=== PATIENT | male | born 1985 | race Caucasian/White ===

== ENCOUNTER 2019-11-28 08:16 | Emergency (ER) | payer SELFPAY ==
[2019-11-28 08:30] VITALS: BP 155/78
== END 2019-11-28 10:49 | disposition left against medical advice (07) ==
LOC: ED 08:16
DX: L50.8 Other urticaria (principal); Z53.21 Procedure and treatment not carried out due to patient leaving prior to being seen by health care provider

== ENCOUNTER 2021-03-31 06:52 | Emergency (ER) | payer SELFPAY ==
[2021-03-31 07:20] VITALS: BP 113/51
--- NOTE | 2021-03-31 07:29 | Emergency Department Report ---
ED ENT HPI - General Chief complaint: Dental/Oral Stated complaint: TOOTHACHE Time Seen by Provider: 03/31/21 07:22 Source: patient Mode of arrival: Ambulatory Limitations: No Limitations - History of Present Illness Initial comments: 36-year-old -[place] male presents to the ER today with complaints of dental pain. Onset 2 days ago. Location right upper jaw. Patient admits that he has had a bad tooth in that area for a while, but started to hurt 2 days ago and felt like it started to swell and so came to the ER to get checked. He does not currently have a dentist. He reports no trismus, drooling, facial redness, fever, chills or any additional symptoms at this time. MD complaint: tooth pain -: days(s) (2) - Related Data Previous Rx's Medication Instructions Recorded Last Taken Type Ketorolac [Toradol] 10 mg PO Q6H PRN #20 03/31/21 Unknown Rx Penicillin V Potassium 500 mg PO Q6HR #40 tab 03/31/21 Unknown Rx Allergies Allergy/AdvReac Type Severity Reaction Status Date / Time No Known Allergies Allergy Verified 03/31/21 07:16 ED Dental HPI - General Chief complaint: Dental/Oral Stated complaint: TOOTHACHE Time Seen by Provider: 03/31/21 07:22 Source: patient Mode of arrival: Ambulatory Limitations: No Limitations - Related Data Previous Rx's Medication Instructions Recorded Last Taken Type Ketorolac [Toradol] 10 mg PO Q6H PRN #20 03/31/21 Unknown Rx Penicillin V Potassium 500 mg PO Q6HR #40 tab 03/31/21 Unknown Rx Allergies Allergy/AdvReac Type Severity Reaction Status Date / Time No Known Allergies Allergy Verified 03/31/21 07:16 ED Review of Systems ROS: Stated complaint: TOOTHACHE Other details as noted in HPI Comment: All other systems reviewed and negative Constitutional: denies: chills, fever ENT: dental pain Respiratory: denies: cough, shortness of breath, wheezing Cardiovascular: denies: chest pain, palpitations Gastrointestinal: denies: abdominal pain, nausea, diarrhea Genitourinary: denies: urgency, dysuria, frequency, hematuria, discharge, testicular mass Musculoskeletal: denies: back pain, joint swelling, arthralgia Skin: denies: rash, lesions, change in color, change in hair/nails, pruritus Neurological: denies: headache, weakness, numbness, paresthesias Psychiatric: denies: anxiety, depression Hematological/Lymphatic: denies: easy bleeding, easy bruising ED Past Medical Hx - Past Medical History Previous Medical History?: No - Surgical History Past Surgical History?: No - Social History Smoking Status: Current Every Day Smoker Substance Use Type: None - Medications Home Medications: Home Medications Medication Instructions Recorded Confirmed Last Taken Type Ketorolac [Toradol] 10 mg PO Q6H PRN #20 03/31/21 Unknown Rx Penicillin V Potassium 500 mg PO Q6HR #40 tab 03/31/21 Unknown Rx ED Physical Exam - General Limitations: No Limitations General appearance: alert, in no apparent distress - Head Head exam: Present: atraumatic, normocephalic, normal inspection - Eye Eye exam: Present: normal appearance, PERRL, EOMI Pupils: Present: normal accommodation - ENT ENT exam: Present: mucous membranes moist - Expanded ENT Exam Expanded Mouth exam: Present: normal external inspection Teeth exam: Present: dental caries, dental tenderness # 1 - Dental Tenderness (Moderate tenderness, with dental decay, mild gingival swelling) Throat exam: Positive: normal inspection - Neck Neck exam: Present: normal inspection, full ROM - Respiratory Respiratory exam: Present: normal lung sounds bilaterally. Absent: respiratory distress, wheezes, rales, rhonchi - Cardiovascular Cardiovascular Exam: Present: regular rate, normal rhythm, normal heart sounds - Neurological Exam Neurological exam: Present: alert, oriented X3, CN II-XII intact, normal gait - Psychiatric Psychiatric exam: Present: normal affect, normal mood - Skin Skin exam: Present: intact ED Course Vital Signs 03/31/21 07:17 Temperature 98.6 F Pulse Rate 68 Respiratory 18 Rate Blood Pressure 113/51 O2 Sat by Pulse 97 Oximetry ED Medical Decision Making - Medical Decision Making The patient is resting comfortably and is well-appearing and in no acute distress. There is no respiratory distress, no stridor and the mental status is normal. The neurological exam is normal, and there is no signs of dehydration. There is no trismus or drooling. No significant facial swelling or redness. The history, exam, diagnostic testing and the patient current condition does not suggest an infectious process such as severe dental abscess with facial cellulitis, meningitis, retropharyngeal abscess, peritonsillar abscess, Omayra's angina, orbital cellulitis, periorbital cellulitis,externa, sepsis or any significant pathology warranting further testing, continued ED treatment, admission, consultation or any other evaluation at this time. The vital signs have been stable. Discussed suspected diagnosis and treatment plan with patient. He will be given a list of dentist to follow-up with. The patient condition is stable and appropriate for discharge. Critical care attestation.: If time is entered above; I have spent that time in minutes in the direct care of this critically ill patient, excluding procedure time. ED Disposition Clinical Impression: Periapical abscess, Pain due to dental caries Disposition: HOME / SELF CARE / HOMELESS Is pt being admited?: No Does the pt Need Aspirin: No Condition: Stable Instructions: Dental Abscess, [id number] Additional Instructions: Recommend that he take the penicillin as prescribed. Take the Toradol as prescribed. Recommend doing warm salt water rinses as often as possible. Most importantly I recommend follow-up with a dentist, if you do not have 1 you can follow-up with one of the dentist listed on your dental list given to you at discharge. Return to the ER if your symptoms changes or worsens in any way. Prescriptions: Penicillin V Potassium 500 mg PO Q6HR #40 tab Ketorolac [Toradol] 10 mg PO Q6H PRN #20 PRN Reason: Pain Referrals: PRIMARY CARE, [Referring] - 3-5 Days Forms: Work/School Release Form(ED) Time of Disposition: 07:29
== END 2021-03-31 07:38 | disposition home or self-care (01) ==
LOC: ED 06:52
DX: K02.9 Dental caries, unspecified (principal); K04.7 Periapical abscess without sinus; F17.200 Nicotine dependence, unspecified, uncomplicated
CPT/HCPCS: 99282